=== PATIENT | male | born 1960 | race Caucasian/White ===

== ENCOUNTER 2017-02-18 16:05 | Inpatient (IN) | payer OTHER ==
[2017-02-18] VITALS (195 sets, daily range): BP systolic 124–128; BP diastolic 88–91; PULSE 97–100; TEMP 98; O2SAT 82–100
[~2017-02-18] VITALS: Ht 188 cm; Wt 70.2 kg
[~2017-02-18 16:05] MED LIST: NO HOME MEDICATIONS
[2017-02-18 17:00] LABS: VENOUS BLOOD GAS BE -4.2 (-4-4); VENOUS BLOOD GAS SAO2 41.2 % (60-80)
[2017-02-18 17:02] LABS: VENOUS BLOOD GAS SITE VENIPUNCTURE
[2017-02-18 17:21] LABS: BASO % 0.3 % (0.0-2.0); EOS % 0.2 % (0-4.0); GRAN # 6.3 (1.4-6.5); GRAN % 71.2 % (42.2-75.2); LYMPH # 1.7 (1.2-3.4); MEAN CELL VOLUME 98 fl (80.0-100.0); MEAN CORPUSCULAR HGB CONC 36 g/dl (33.0-37.0); MEAN PLATELET VOLUME 12.1 fl (7.4-10.4); MONO # 0.6 (0.1-0.6); MONO % 7.1 % (1.7-9.3); PLATELET COUNT 109 K/mm3 (130-400); RED BLOOD COUNT 3.19 M/mm3 (4.20-5.60); REDCELL DISTRIBUTION WIDTH-CV 15.5 % (11.5-14.5); WHITE BLOOD COUNT 8.8 K/mm3 (4.8-10.8)
[2017-02-18 17:23] LABS: HEMATOCRIT 31.3 % (42.0-52.0); HEMOGLOBIN 11.3 g/dl (13.5-18.0); MEAN CORPUSCULAR HEMOGLOBIN 35 pg (27.0-31.0)
[2017-02-18 17:34] LABS: MAGNESIUM 1.4 mg/dL (1.6-2.3)
[2017-02-18 17:35] LABS: ADJUSTED CALCIUM 9.5 mg/dL (8.4-10.2); ALANINE AMINOTRANSFERASE 83 U/L (21-72); ALBUMIN 4.3 gm/dL (3.5-5.0); ALKALINE PHOSPHATASE 254 U/L (50-136); ANION GAP 30 mmol/L (7-16); BILIRUBIN,TOTAL 8.3 mg/dL (0.0-1.0); BLOOD UREA NITROGEN 24 mg/dL (9-20); CALCIUM 9.7 mg/dL (8.4-10.2); CARBON DIOXIDE 18 mmol/L (22-30); GLUCOSE 94 mg/dL (74-106); LIPASE 1508 U/L (23-300); POTASSIUM 3.1 mmol/L (3.4-5.0); SODIUM 135 mmol/L (137-145); TOTAL PROTEIN 7.3 gm/dL (6.4-8.2)
[2017-02-18 17:40] LABS: CHLORIDE 88 mmol/L (98-107)
[2017-02-18 17:52] LABS: TROPONIN-I < 0.012 ng/mL (0.000-0.034)
[2017-02-18 17:59] LABS: INR 1.1 (0.8-3.0); PROTHROMBIN TIME 12.2 SECONDS (9.7-12.8)
[2017-02-19] VITALS (542 sets, daily range): BP systolic 103–120; BP diastolic 66–88; PULSE 87–116; TEMP 97.9–99.3; O2SAT 67–100
[2017-02-19 00:45] LABS: GRANULAR CAST >12 /lpf; PH 5 (5-8); URINE APPEARANCE Cloudy; URINE BACTERIA Rare /hpf; URINE BILIRUBIN Positive (NEGATIVE); URINE BLOOD 1+ (NEGATIVE); URINE COLOR Amber; URINE GLUCOSE 1+ (NEGATIVE); URINE KETONE 1+ (NEGATIVE); URINE UROBILINOGEN >=4.0 mg/dL (NEGATIVE)
[2017-02-19 04:30] LABS: BASO % 0.4 % (0.0-2.0); EOS % 0.5 % (0-4.0); GRAN # 3.7 (1.4-6.5); GRAN % 64.6 % (42.2-75.2); LYMPH # 1.4 (1.2-3.4); LYMPH % 24.8 % (20.0-51.0); MEAN CELL VOLUME 100 fl (80.0-100.0); MEAN CORPUSCULAR HGB CONC 35 g/dl (33.0-37.0); MEAN PLATELET VOLUME 11.7 fl (7.4-10.4); MONO # 0.4 (0.1-0.6); MONO % 7.6 % (1.7-9.3); PLATELET COUNT 79 K/mm3 (130-400); RED BLOOD COUNT 2.44 M/mm3 (4.20-5.60); REDCELL DISTRIBUTION WIDTH-CV 15.9 % (11.5-14.5); WHITE BLOOD COUNT 5.7 K/mm3 (4.8-10.8)
[2017-02-19 04:36] LABS: INR 1.1 (0.8-3.0); PROTHROMBIN TIME 11.9 SECONDS (9.7-12.8)
[2017-02-19 04:41] LABS: ADJUSTED CALCIUM 8.8 mg/dL (8.4-10.2); ALBUMIN 3.2 gm/dL (3.5-5.0); BILIRUBIN,TOTAL 5.9 mg/dL (0.0-1.0); CALCIUM 8.2 mg/dL (8.4-10.2); CREATININE, serum 0.74 mg/dL (0.66-1.25); MAGNESIUM 1.9 mg/dL (1.6-2.3); POTASSIUM 3.3 mmol/L (3.4-5.0); TOTAL PROTEIN 5.9 gm/dL (6.4-8.2)
[2017-02-19 04:47] LABS: HEMATOCRIT 24.4 % (42.0-52.0); HEMOGLOBIN 8.6 g/dl (13.5-18.0); MEAN CORPUSCULAR HEMOGLOBIN 35 pg (27.0-31.0)
[2017-02-19 05:10] LABS: THYROID STIMULATING HORMONE 2.56 uIU/mL (0.465-4.680)
[2017-02-19 14:31] LABS: CALCIUM 8.4 mg/dL (8.4-10.2); CREATININE, serum 0.69 mg/dL (0.66-1.25); POTASSIUM 3.8 mmol/L (3.4-5.0)
[2017-02-20] VITALS (10 sets, daily range): BP systolic 94–128; BP diastolic 64–79; PULSE 88–121; TEMP 97.7–99.2
[2017-02-20 08:27] LABS: CALCIUM 8.3 mg/dL (8.4-10.2); CREATININE, serum 0.65 mg/dL (0.66-1.25); POTASSIUM 3.3 mmol/L (3.4-5.0)
[2017-02-20 18:37] LABS: MEAN CELL VOLUME 99 fl (80.0-100.0); MEAN CORPUSCULAR HGB CONC 36 g/dl (33.0-37.0); MEAN PLATELET VOLUME 12.7 fl (7.4-10.4); PLATELET COUNT 71 K/mm3 (130-400); RED BLOOD COUNT 2.02 M/mm3 (4.20-5.60); REDCELL DISTRIBUTION WIDTH-CV 16.3 % (11.5-14.5); WHITE BLOOD COUNT 4.9 K/mm3 (4.8-10.8)
[2017-02-20 18:52] LABS: HEMATOCRIT 19.9 % (42.0-52.0); HEMOGLOBIN 7.1 g/dl (13.5-18.0); MEAN CORPUSCULAR HEMOGLOBIN 35 pg (27.0-31.0)
[2017-02-21] VITALS (9 sets, daily range): BP systolic 95–127; BP diastolic 59–77; PULSE 102–133; TEMP 97.6–99.5
[2017-02-21 08:22] LABS: HEMATOCRIT 25.2 % (42.0-52.0); MEAN CELL VOLUME 98 fl (80.0-100.0); MEAN CORPUSCULAR HEMOGLOBIN 35 pg (27.0-31.0); MEAN CORPUSCULAR HGB CONC 36 g/dl (33.0-37.0); MEAN PLATELET VOLUME 12.9 fl (7.4-10.4); PLATELET COUNT 92 K/mm3 (130-400); RED BLOOD COUNT 2.56 M/mm3 (4.20-5.60); REDCELL DISTRIBUTION WIDTH-CV 16.8 % (11.5-14.5); WHITE BLOOD COUNT 5.5 K/mm3 (4.8-10.8)
[2017-02-21 08:46] LABS: ADJUSTED CALCIUM 9.5 mg/dL (8.4-10.2); BILIRUBIN,TOTAL 7.1 mg/dL (0.0-1.0); CALCIUM 8.7 mg/dL (8.4-10.2); CREATININE, serum 0.55 mg/dL (0.66-1.25); POTASSIUM 3.2 mmol/L (3.4-5.0); TOTAL PROTEIN 5.9 gm/dL (6.4-8.2)
[2017-02-22] VITALS (12 sets, daily range): BP systolic 87–111; BP diastolic 55–76; PULSE 106–122; TEMP 97.7–98.9
[2017-02-22 07:43] LABS: ADJUSTED CALCIUM 9.3 mg/dL (8.4-10.2); ALBUMIN 2.6 gm/dL (3.5-5.0); BILIRUBIN,TOTAL 7.5 mg/dL (0.0-1.0); CALCIUM 8.2 mg/dL (8.4-10.2); CREATININE, serum 0.64 mg/dL (0.66-1.25); MEAN CELL VOLUME 100 fl (80.0-100.0); MEAN CORPUSCULAR HGB CONC 35 g/dl (33.0-37.0); MEAN PLATELET VOLUME 12.6 fl (7.4-10.4); PHOSPHOROUS 1.6 mg/dL (2.5-4.5); PLATELET COUNT 93 K/mm3 (130-400); RED BLOOD COUNT 2.25 M/mm3 (4.20-5.60); REDCELL DISTRIBUTION WIDTH-CV 17.3 % (11.5-14.5); TOTAL PROTEIN 5.3 gm/dL (6.4-8.2); WHITE BLOOD COUNT 5.5 K/mm3 (4.8-10.8)
[2017-02-22 07:44] LABS: HEMATOCRIT 22.4 % (42.0-52.0); HEMOGLOBIN 7.9 g/dl (13.5-18.0); MEAN CORPUSCULAR HEMOGLOBIN 35 pg (27.0-31.0)
[2017-02-22 08:03] LABS: POTASSIUM 2.7 mmol/L (3.4-5.0)
[2017-02-22 12:32] LABS: LIPASE 296 U/L (23-300)
[2017-02-22 14:03] LABS: TRIGLYCERIDE 180 mg/dL
[2017-02-23] VITALS (16 sets, daily range): BP systolic 86–100; BP diastolic 45–70; PULSE 91–111; TEMP 97.5–98.8
[2017-02-23 08:42] LABS: CREATININE, serum 0.76 mg/dL (0.66-1.25); MAGNESIUM 1.6 mg/dL (1.6-2.3); PHOSPHOROUS 2.4 mg/dL (2.5-4.5); POTASSIUM 3.3 mmol/L (3.4-5.0)
[2017-02-23 11:05] LABS: MEAN CELL VOLUME 99 fl (80.0-100.0); MEAN CORPUSCULAR HGB CONC 35 g/dl (33.0-37.0); MEAN PLATELET VOLUME 13.2 fl (7.4-10.4); PLATELET COUNT 112 K/mm3 (130-400); RED BLOOD COUNT 2.09 M/mm3 (4.20-5.60); REDCELL DISTRIBUTION WIDTH-CV 18.2 % (11.5-14.5); WHITE BLOOD COUNT 5.2 K/mm3 (4.8-10.8)
[2017-02-23 11:12] LABS: ADD PATHOLOGY DIFF REVIEW NO; HEMATOCRIT 20.7 % (42.0-52.0); HEMOGLOBIN 7.3 g/dl (13.5-18.0); MEAN CORPUSCULAR HEMOGLOBIN 35 pg (27.0-31.0)
[2017-02-23 11:39] LABS: BAND 24 % (0-10); BASOPHIL 2 % (0-2); METAMYELOCYTE 1 % (0-0); NEUTROPHILS 32 % (42.0-75.2); TOTAL CELLS COUNTED 100
[2017-02-23 11:42] LABS: PLATELET ESTIMATE DECREASED (NORMAL)
[2017-02-23 11:44] LABS: POLYCHROMASIA 1+; STOMATOCYTE 1+; TARGET CELLS 3+
[2017-02-24] VITALS (13 sets, daily range): BP systolic 89–102; BP diastolic 57–67; PULSE 91–102; TEMP 97–98.7
[2017-02-24 07:44] LABS: MEAN CELL VOLUME 101 fl (80.0-100.0); MEAN CORPUSCULAR HGB CONC 35 g/dl (33.0-37.0); MEAN PLATELET VOLUME 12.9 fl (7.4-10.4); PLATELET COUNT 145 K/mm3 (130-400); RED BLOOD COUNT 1.98 M/mm3 (4.20-5.60); REDCELL DISTRIBUTION WIDTH-CV 18.4 % (11.5-14.5); WHITE BLOOD COUNT 5.1 K/mm3 (4.8-10.8)
[2017-02-24 07:53] LABS: CALCIUM 8.2 mg/dL (8.4-10.2); CREATININE, serum 0.66 mg/dL (0.66-1.25); MAGNESIUM 1.4 mg/dL (1.6-2.3); PHOSPHOROUS 2.5 mg/dL (2.5-4.5); POTASSIUM 3.6 mmol/L (3.4-5.0)
[2017-02-24 08:12] LABS: HEMOGLOBIN 6.9 g/dl (13.5-18.0); MEAN CORPUSCULAR HEMOGLOBIN 35 pg (27.0-31.0)
[2017-02-24 08:13] LABS: ADD PATHOLOGY DIFF REVIEW NO
[2017-02-24 09:04] LABS: BAND 19 % (0-10); BASOPHIL 3 % (0-2); EOSINOPHIL 2 % (0-4); HYPOCHROMIA 3+; NEUTROPHILS 46 % (42.0-75.2); PLATELET ESTIMATE NORMAL (NORMAL); TARGET CELLS 2+; TOTAL CELLS COUNTED 100
[2017-02-24 09:28] LABS: ALBUMIN 2.4 gm/dL (3.5-5.0); TOTAL PROTEIN 5.1 gm/dL (6.4-8.2)
[2017-02-24 09:38] LABS: BILIRUBIN,DIRECT 5.8 mg/dL (0.0-0.4)
[2017-02-25 03:36] VITALS: BP 107/73; PULSE 88; TEMP 98
[2017-02-25 07:14] LABS: MEAN CELL VOLUME 100 fl (80.0-100.0); MEAN CORPUSCULAR HGB CONC 35 g/dl (33.0-37.0); MEAN PLATELET VOLUME 12.3 fl (7.4-10.4); PLATELET COUNT 163 K/mm3 (130-400); RED BLOOD COUNT 2.49 M/mm3 (4.20-5.60); REDCELL DISTRIBUTION WIDTH-CV 18.3 % (11.5-14.5)
[2017-02-25 07:16] LABS: HEMATOCRIT 24.8 % (42.0-52.0); HEMOGLOBIN 8.7 g/dl (13.5-18.0); MEAN CORPUSCULAR HEMOGLOBIN 35 pg (27.0-31.0)
[2017-02-25 07:28] LABS: CALCIUM 8.4 mg/dL (8.4-10.2); CREATININE, serum 0.67 mg/dL (0.66-1.25); MAGNESIUM 1.6 mg/dL (1.6-2.3); PHOSPHOROUS 2.5 mg/dL (2.5-4.5); POTASSIUM 3.9 mmol/L (3.4-5.0)
[2017-02-25 08:25] VITALS: BP 97/70; PULSE 100; TEMP 99.1
[2017-02-25 10:05] LABS: ANISOCYTOSIS 1+; BAND 44 % (0-10); METAMYELOCYTE 1 % (0-0); NEUTROPHILS 33 % (42.0-75.2); PLATELET ESTIMATE NORMAL (NORMAL); TOTAL CELLS COUNTED 100
[2017-02-25 10:06] LABS: HYPOCHROMIA 1+
[2017-02-25 10:07] LABS: ADD PATHOLOGY DIFF REVIEW YES
[2017-02-25 12:40] VITALS: BP 90/64; PULSE 101; TEMP 98.8
[2017-02-25 15:55] VITALS: BP 97/67; PULSE 99; TEMP 98.4
[2017-02-25 20:36] VITALS: BP 107/72; PULSE 101; TEMP 98.4
[2017-02-25 22:51] VITALS: BP 108/73; PULSE 103; TEMP 98.9
[2017-02-26 04:45] VITALS: BP 114/85; PULSE 74; TEMP 98.3
[2017-02-26 06:00] LABS: MEAN CELL VOLUME 103 fl (80.0-100.0); MEAN CORPUSCULAR HGB CONC 34 g/dl (33.0-37.0); MEAN PLATELET VOLUME 12.2 fl (7.4-10.4); PLATELET COUNT 174 K/mm3 (130-400); RED BLOOD COUNT 2.33 M/mm3 (4.20-5.60); REDCELL DISTRIBUTION WIDTH-CV 18.6 % (11.5-14.5); WHITE BLOOD COUNT 9.6 K/mm3 (4.8-10.8)
[2017-02-26 06:02] LABS: ADD PATHOLOGY DIFF REVIEW NO; HEMATOCRIT 24.1 % (42.0-52.0); HEMOGLOBIN 8.2 g/dl (13.5-18.0); MEAN CORPUSCULAR HEMOGLOBIN 35 pg (27.0-31.0)
[2017-02-26 06:16] LABS: ADJUSTED CALCIUM 9.8 mg/dL (8.4-10.2); ALBUMIN 2.4 gm/dL (3.5-5.0); BILIRUBIN,TOTAL 4.5 mg/dL (0.0-1.0); CALCIUM 8.5 mg/dL (8.4-10.2); CREATININE, serum 0.74 mg/dL (0.66-1.25); POTASSIUM 3.8 mmol/L (3.4-5.0); TOTAL PROTEIN 5.1 gm/dL (6.4-8.2)
[2017-02-26 06:43] LABS: BAND 13 % (0-10); BASOPHIL 1 % (0-2); EOSINOPHIL 1 % (0-4); NEUTROPHILS 62 % (42.0-75.2); TOTAL CELLS COUNTED 100
[2017-02-26 06:44] LABS: ANISOCYTOSIS 1+; POIKILOCYTOSIS 2+; POLYCHROMASIA 1+; ROULEAUX 1+; STOMATOCYTE 2+; TOXIC GRANULATION PRESENT
[2017-02-26 06:45] LABS: HYPOCHROMIA 2+; MICROCYTOSIS 1+; TARGET CELLS 1+
[2017-02-26 07:35] VITALS: BP 104/58; PULSE 100; TEMP 98.2
[2017-02-26 11:29] VITALS: BP 96/59; PULSE 102; TEMP 98.4
[2017-02-26 15:52] VITALS: BP 101/77; PULSE 104; TEMP 99.2
[2017-02-26 20:42] VITALS: BP 124/86; PULSE 97; TEMP 98.8
[2017-02-26 22:51] VITALS: BP 100/62; PULSE 90; TEMP 98.5
[2017-02-27 03:39] VITALS: BP 119/73; PULSE 86; TEMP 97.6
[2017-02-27 07:31] LABS: MEAN CELL VOLUME 106 fl (80.0-100.0); MEAN CORPUSCULAR HGB CONC 32 g/dl (33.0-37.0); MEAN PLATELET VOLUME 11.9 fl (7.4-10.4); PLATELET COUNT 185 K/mm3 (130-400); RED BLOOD COUNT 2.47 M/mm3 (4.20-5.60); REDCELL DISTRIBUTION WIDTH-CV 18.3 % (11.5-14.5); WHITE BLOOD COUNT 8.3 K/mm3 (4.8-10.8)
[2017-02-27 07:37] LABS: ADD PATHOLOGY DIFF REVIEW NO; HEMATOCRIT 26.2 % (42.0-52.0); HEMOGLOBIN 8.5 g/dl (13.5-18.0); MEAN CORPUSCULAR HEMOGLOBIN 34 pg (27.0-31.0)
[2017-02-27 07:44] LABS: ALBUMIN 2.4 gm/dL (3.5-5.0); BILIRUBIN,TOTAL 4.1 mg/dL (0.0-1.0); CALCIUM 8.7 mg/dL (8.4-10.2); CREATININE, serum 0.74 mg/dL (0.66-1.25); MAGNESIUM 1.6 mg/dL (1.6-2.3); POTASSIUM 3.7 mmol/L (3.4-5.0); TOTAL PROTEIN 5.4 gm/dL (6.4-8.2)
[2017-02-27 08:28] VITALS: BP 110/73; PULSE 71; TEMP 98.4
[2017-02-27 08:47] LABS: BAND 37 % (0-10); MYELOCYTE 2 % (0-0); NEUTROPHILS 37 % (42.0-75.2); PLATELET ESTIMATE NORMAL (NORMAL); TOTAL CELLS COUNTED 100
[2017-02-27 08:48] LABS: TOXIC GRANULATION PRESENT
[2017-02-27 08:49] LABS: STOMATOCYTE 1+; TARGET CELLS 1+
[2017-02-27 11:33] VITALS: BP 116/70; PULSE 93; TEMP 98.3
[2017-02-27 15:56] VITALS: BP 101/69; PULSE 98; TEMP 97.8
[2017-02-27 19:21] VITALS: BP 100/60; PULSE 99; TEMP 98.1
[2017-02-27 22:41] VITALS: BP 95/61; PULSE 94; TEMP 98.5
[2017-02-28 03:51] VITALS: BP 110/73; PULSE 91; TEMP 98.5
[2017-02-28 07:46] VITALS: BP 110/66; PULSE 92; TEMP 97.4
[2017-02-28 09:06] LABS: PATHOLOGY DIFF REVIEW OK +
[2017-02-28 11:50] VITALS: BP 102/67; PULSE 109; TEMP 98.6
[2017-02-28 16:55] VITALS: BP 102/63; PULSE 109; PULSE 110; TEMP 97.7
[2017-02-28 20:14] VITALS: BP 99/61; PULSE 108; TEMP 98.4
[2017-02-28 23:55] VITALS: BP 105/64; PULSE 100; TEMP 98.9
[2017-03-01 04:01] VITALS: BP 140/88; PULSE 92; TEMP 98.7
[2017-03-01 07:21] LABS: MEAN CELL VOLUME 108 fl (80.0-100.0); MEAN CORPUSCULAR HGB CONC 32 g/dl (33.0-37.0); MEAN PLATELET VOLUME 11.8 fl (7.4-10.4); PLATELET COUNT 176 K/mm3 (130-400); RED BLOOD COUNT 2.26 M/mm3 (4.20-5.60); REDCELL DISTRIBUTION WIDTH-CV 17.5 % (11.5-14.5); WHITE BLOOD COUNT 10.7 K/mm3 (4.8-10.8)
[2017-03-01 07:22] LABS: ADD PATHOLOGY DIFF REVIEW NO; HEMATOCRIT 24.4 % (42.0-52.0); HEMOGLOBIN 7.8 g/dl (13.5-18.0); MEAN CORPUSCULAR HEMOGLOBIN 35 pg (27.0-31.0)
[2017-03-01 07:23] LABS: CALCIUM 8.5 mg/dL (8.4-10.2); CREATININE, serum 0.68 mg/dL (0.66-1.25); POTASSIUM 3.9 mmol/L (3.4-5.0)
[2017-03-01 08:09] VITALS: BP 102/63; PULSE 112; TEMP 98.2
[2017-03-01 08:51] LABS: BAND 49 % (0-10); METAMYELOCYTE 2 % (0-0); NEUTROPHILS 29 % (42.0-75.2); PLATELET ESTIMATE NORMAL (NORMAL); TOTAL CELLS COUNTED 100
[2017-03-01 08:58] LABS: ANISOCYTOSIS 1+
[2017-03-01 08:59] LABS: TOXIC GRANULATION PRESENT
[2017-03-01] MEDS ORDERED: LEVAQUIN 750MG750 M1 PO (10:44)
[2017-03-01] MEDS ORDERED: FERROUS SU325 MG/TAB PO (10:44)
[2017-03-01] MEDS ORDERED: NICODERM C14 MG/PATC TD (10:44)
[2017-03-01] MEDS ORDERED: FOLIC ACID 11 MG/TA1 PO (10:45)
[2017-03-01] MEDS ORDERED: MAG-OX 400400 MG/TAB PO (10:45)
[2017-03-01] MEDS ORDERED: THIAMINE 1100 MG/TAB PO (10:45)
[2017-03-01] MEDS ORDERED: DUO-KAPS1 CAP PO (10:45)
[2017-03-01 12:32] VITALS: BP 102/63; PULSE 112; TEMP 98.2
[2017-03-01 12:59] VITALS: PULSE 98
== END 2017-03-01 14:27 | DRG 439 ==
LOC: COL.ER 16:05 → MEDICAL 18:36 → ICU 18:36 → MEDICAL 02-19 11:30
PROVIDERS: Emergency Medicine; Family Medicine; Internal Medicine; Internal Medicine Cardiovascular Disease; Internal Medicine Gastroenterology; Nurse Practitioner Family; Physician Assistant
PROC: 0DJ08ZZ Inspection of Upper Intestinal Tract, Via Natural or Artificial Opening Endoscopic (ICD-10-PCS; principal; 2017-02-23 15:15)
DX: K85.20 Alcohol induced acute pancreatitis without necrosis or infection (principal); F10.239 Alcohol dependence with withdrawal, unspecified; E44.0 Moderate protein-calorie malnutrition; Z68.1 Body mass index [BMI] 19.9 or less, adult; E87.1 Hypo-osmolality and hyponatremia; Y90.1 Blood alcohol level of 20-39 mg/100 ml; F17.210 Nicotine dependence, cigarettes, uncomplicated; E87.6 Hypokalemia; E83.42 Hypomagnesemia; D50.0 Iron deficiency anemia secondary to blood loss (chronic); F31.9 Bipolar disorder, unspecified; E83.39 Other disorders of phosphorus metabolism
CPT/HCPCS: 90791-AI; 99222-AI; 99231-AI; 99232-AI; 99233-AI; 99239; J1940; J2060; J2250; J2270; J2405; J2543; J3010; J3411; J3475; J3480; J7030; J7050; P9016

== ENCOUNTER 2017-04-29 10:36 | Day surgery (SDC) | payer OTHER ==
[~2017-04-29] VITALS: Ht 188 cm; Wt 72.7 kg
[~2017-04-29 10:36] MED LIST changes: +AMOXICILLIN 8751 TAB PO; +DUO-KAPS1 CAP PO; +FERROUS SU325 MG/TAB PO; +FOLIC ACID 11 MG/TA1 PO; +K-TAB10 PO; +LACTULOSE10 GM/153 PO; +LEVAQUIN 750MG750 M1 PO; +LOVENOX 4040 MG/0.4 SQ; +MAG-OX 400400 MG/TAB PO; +NICODERM C14 MG/PATC TD; +NICODERM C21 MG/PATC TD; +PROBIOTIC FORMU1 CAP PO; +PROTONIX 40MG T40 MG PO; +THERAGRAN TAB1 UDTAB PO; +THIAMINE 1100 MG/TAB PO; +ULTRAM 50MG TAB50 MG PO; +VITAMIN C500 MG PO
[2017-04-29 11:16] VITALS: BP 113/81; PULSE 96; TEMP 98.7
[2017-04-29] MEDS ORDERED: K-TAB20 PO (12:08)
[2017-04-29] MEDS ORDERED: MOTRIN 800800 MG/TAB PO (12:14)
[2017-04-29] MEDS ORDERED: ULTRAM ER100 MG PO (12:17)
[2017-04-29 13:05] LABS: CALCIUM 9.8 mg/dL (8.4-10.2); CREATININE, serum 0.67 mg/dL (0.66-1.25); POTASSIUM 4.5 mmol/L (3.4-5.0)
[2017-04-29 13:10] VITALS: BP 111/95; PULSE 101; TEMP 97.4
[2017-04-29 13:25] VITALS: BP 124/94; PULSE 79
[2017-04-29 13:40] VITALS: BP 141/97; PULSE 80
[2017-04-29 13:55] VITALS: BP 141/104; PULSE 86
== END 2017-04-29 14:20 ==
LOC: SDCO 10:36
PROVIDERS: Nurse Anesthetist, Certified Registered
DX: T85.898A Other specified complication of other internal prosthetic devices, implants and grafts, initial encounter (principal); K83.8 Other specified diseases of biliary tract; K85.90 Acute pancreatitis without necrosis or infection, unspecified; D64.9 Anemia, unspecified; F31.9 Bipolar disorder, unspecified; F17.210 Nicotine dependence, cigarettes, uncomplicated; F41.9 Anxiety disorder, unspecified; Z90.49 Acquired absence of other specified parts of digestive tract
CPT/HCPCS: OP; C1769; J2704; J3010; J7030; Q9967